=== PATIENT | female | born 1930 | race Caucasian/White ===

== ENCOUNTER 2017-05-27 15:00 | Inpatient (IN) | payer MEDICARE, OTHER ==
[~2017-05-27] VITALS: Ht 157.5 cm; Wt 75.9 kg
--- NOTE | ~2017-05-27 | HP ---
PATIENT'S NAME: COURTNEY CORDERO [facility] AGE: 86 Y [address] ROOM: [place] [address] [facility] ADMIT DATE: 05/27/2017 History & Physical DISCHARGE DATE: FAMILY PHYSICIAN: PHYSICIAN, UNKNOWN ATTENDING PHYSICIAN: Amanda MILLER DATE OF SERVICE: CHIEF COMPLAINT: ETHEL. HISTORY OF PRESENT ILLNESS: The patient is an 86-year-old female with past medical history of type 2 diabetes mellitus, hypothyroidism, hypertension, obesity, and history of MRSA infection who presents here from [facility] with ETHEL. According to Dr. Johns, the transferring doctor, the patient initially presented to their facility with back pain from senior care. On initial evaluation, the patient had a CTA of the abdomen to rule out dissection. CTA did not show any dissection. The patient's chest x-ray showed possible right lower lobe pneumonia. The patient was started on Levaquin initially and was admitted to the hospital. The patient's back pain improved with supportive care. During her stay, the patient's blood culture grew 2/2 MSSA. Vancomycin was added to the patient's list of medication. However, during her stay, the patient's creatinine increased initially when she was admitted on 05/24/2017. The patient's creatinine was noted to be around 1.2. However, the patient was noted to be oliguric and also in acute kidney injury with creatinine now to 3.2. The patient was treated with trial of fluids and Lasix. When the patient was transferred to our facility, the patient was on Lasix drip. The patient currently complains of lower back pain. She reports that has been going on for a month. She denies any worsening of shortness of breath, productive cough, fever, chills, nausea, vomiting, abdominal pain, diarrhea, and chest pain. Of note, the patient lives in senior care. MEDICAL HISTORY: Hypertension, diabetes mellitus, hypothyroidism, hypertension, obesity, history of MRSA infection. SURGICAL HISTORY: Pacemaker placement, hysterectomy, and cataract surgery. FAMILY HISTORY: The patient's mom has a history of stroke. PATIENT'S NAME: COURTNEY CORDERO [facility] AGE: 86 Y [address] ROOM: [place] [address] LOCATION: [facility] ADMIT DATE: 05/27/2017 History & Physical DISCHARGE DATE: FAMILY PHYSICIAN: PHYSICIAN, UNKNOWN ATTENDING PHYSICIAN: Amanda MILLER SOCIAL HISTORY: The patient quit smoking 15 years ago and denies use of alcohol and lives in the senior care. ALLERGIES: SULFA AND PENICILLIN. MEDICATIONS: The patient takes at home, 1. Morven 5/325 four times a day. 2. Aldactone 25 mg twice a day. 3. Vitamin D 2000 units daily. 4. Metolazone 5 mg 3 times a week. 5. Calcium with vitamin D twice a day. 6. Lasix 40 mg. 7. Allopurinol 300 mg. 8. Metformin 500 mg twice a day. 9. Omeprazole. 10. Zoloft 100 mg. 11. Restoril 50 mg. 12. Ativan 0.5 four times a day as needed. 13. Synthroid 0.1 mg. 14. Coreg 6.25 twice a day. 15. Zocor 40 mg. 16. Lisinopril 20 mg. 17. Pepto-Bismol as needed. 18. Aspirin daily. REVIEW OF SYSTEMS: All systems have been reviewed and are negative except for what I mentioned in the HPI. PHYSICAL EXAMINATION: VITAL SIGNS: Temperature 98, blood pressure 114/76, respiratory rate 20, pulse of 70. GENERAL APPEARANCE: The patient is alert and awake, in no acute distress. NOSE: No nasal discharge. EYES: Extraocular muscles intact. MOUTH: Dry oral mucosa. EAR: No ear discharge. CHEST: Decreased breath sounds bilaterally. No wheezing or rales heard. HEART: Distant heart sounds. Regular rate and rhythm. No murmurs, rubs, or gallops heard. ABDOMEN: Old surgical scar. Abdomen is soft, nontender, and nondistended. PATIENT'S NAME: COURTNEY CORDERO [facility] AGE: 86 Y [address] ROOM: [id number] [place] [address] [facility] ADMIT DATE: 05/27/2017 History & Physical DISCHARGE DATE: FAMILY PHYSICIAN: PHYSICIAN, UNKNOWN ATTENDING PHYSICIAN: Amanda MILLER Bowel sounds are present. EXTREMITIES: Lower extremity venous stasis change and trace edema. MUSCULOSKELETAL: Range of motion intact. No obvious joint effusion noted. FINE ARTS MODEL: Alert and oriented x3. Motor and sensory grossly intact. LABORATORY DATA: Lactate 1. White blood cells 8.3, hemoglobin 10, platelets of 187. Chem: BUN of 43, CO2 of 20, creatinine of 3.2, albumin of 2, and calcium of 5.6. Potassium 4.8 and magnesium 2.2. Chest x-ray shows cardiac enlargement, bibasilar opacity, which could reflect edema or infiltrate and atelectasis. ASSESSMENT AND PLAN: 1. Acute kidney injury, etiology most likely secondary to contrast-induced nephropathy or secondary sepsis due to bacteremia. At the present time, it is somewhat difficult to evaluate the patient's intravascular fluid. The patient has some edema, also looks dry. The patient has been on trial of IV fluids and Lasix. Actually, the patient came with a Lasix drip. We will hold any IV fluid or Lasix. We will acquire urine electrolytes. We will acquire renal ultrasound. We will have strict I's and O's. Discussed the case with Dr. Recio. No indication for hemodialysis at this moment. This is most likely secondary to contrast- induced nephropathy, as the patient has a history of diabetes mellitus, and was on aggressive diuretic regimen as an outpatient when she got her contrast. We will follow the patient clinically. 2. Bacteremia. The patient has methicillin-susceptible. 3. Staphylococcus aureus 2/2 at the outside hospital. Discussed the case with ID. We will start the patient on oxacillin 2 g IV every 4 hours. We will repeat blood culture. We will acquire echo initially with a transthoracic echo to rule out infectious endocarditis. Also, the patient has pacemaker to be seen by Infectious Disease on Saturday and in order to figure out for how long we should treat this methicillin- susceptible. 4. Staphylococcus aureus. Also, interestingly, the patient has back pain. I suspect the patient might actually present with diskitis, as the patient is presenting with back pain. However, she did not acquire MRI with and without contrast due to acute kidney injury. We will treat the patient with antibiotic for now and when the creatinine gets better, we will evaluate for MRI for diskitis. 5. Community-acquired pneumonia. The patient is currently not convinced if the patient's initial presentation to be pneumonia. Chest x-ray here did not show any significant infiltrate. The patient currently does not have any productive cough and worsening of shortness of breath. We will acquire CT chest without contrast to further evaluate for infiltrate. PATIENT'S NAME: COURTNEY CORDERO [facility] AGE: 86 Y [address] ROOM: [place] [address] [facility] ADMIT DATE: 05/27/2017 History & Physical DISCHARGE DATE: FAMILY PHYSICIAN: PHYSICIAN, UNKNOWN ATTENDING PHYSICIAN: Amanda MILLER 6. Hypocalcemia. The patient was noted to have a calcium level corrected of 7.4. We will give calcium gluconate now. There is no [place] sign noted. We will follow calcium. We will also get a vitamin D level and PTH level. 7. Hypothyroidism, to continue Synthroid. 8. Diabetes mellitus type 2. We will hold metformin. We will put the patient on sliding scale insulin. 9. Hypertension, stable. We will hold diuretic medication. 10. Morbid obesity, ongoing. Greater than 70 minutes was spent on patient care. Greater than 50% of the time was spent in direct care. The patient's case was discussed with Infectious Disease and Dr. Recio. We will admit the patient for ETHEL and MSSA. The patient's question and family question were answered satisfactorily. On admission, code status, full code. MD BRETT RAMOS/kimberly /[id number] D: [id number] T: [id number] HISTORY & PHYSICAL
--- NOTE | ~2017-05-27 | CON ---
PATIENT'S NAME: COURTNEY CODRERO [facility] AGE: 86 Y [address] ROOM: [id number] [place], [place] [address] LOCATION: [facility] ADMIT DATE: 05/27/2017 Consultation DISCHARGE DATE: FAMILY PHYSICIAN: PHYSICIAN, UNKNOWN ATTENDING PHYSICIAN: Amanda MILLER DATE OF CONSULTATION: 05/28/2017 REFERRING PHYSICIAN: Chasidy Malik MD This is a [facility] Nephrology consultation. REASON FOR CONSULTATION: Acute kidney injury on chronic kidney disease stage 3. HISTORY OF PRESENT ILLNESS: This is an 86-year-old female patient with past medical history of type 2 diabetes, hypothyroidism, hypertension, obesity, and history of MRSA infection who presented to [facility] from [facility] with acute kidney injury. While in [place], the patient initially presented with back pain. The patient did undergo a CT with contrast to rule out dissection. The patient was started on Levaquin initially and the patient's blood pressure at that time grew out MSSA. Vancomycin was also added to the patient's medication list at that time. However, during the patient's stay, her creatinine raised from baseline 1.2 to 3.2 today. The patient is noted to be oliguric as well. The patient was treated with a trial of IV fluid as well as Lasix. At the time of transfer, the patient was on a Lasix drip. I do note that the patient was also taking an JELANI inhibitor on her home medication list prior to her admission. She was also taking metolazone at home. At the time of the exam, the patient is complaining of back pain. She does appear to be hypervolemic. Urine protein-creatinine ratio has returned at 1.0. Echocardiogram does show an ejection fraction of 35% with elevated pulmonary pressures of 61 mmHg. Chest x-ray did show cardiac enlargement with bibasilar opacity that could reflect edema or infiltrate as well as atelectasis. Bilateral pleural fluid collections were also noted that were greater in the left than the right. Due to the patient's acute kidney injury with a baseline creatinine of 1.2 and elevation of creatinine today to 3.2, Dr. Recio has been asked to consult on the patient. PAST MEDICAL HISTORY: As listed above includin. Hypertension. 2. Diabetes mellitus, controlled. PATIENT'S NAME: COURTNEY CORDERO [facility] AGE: 86 Y [address] ROOM: [place] [address] LOCATION: [facility]PCU ADMIT DATE: 05/27/2017 Consultation DISCHARGE DATE: FAMILY PHYSICIAN: PHYSICIAN, UNKNOWN ATTENDING PHYSICIAN: Amanda MILLER 3. Hypothyroidism. 4. Obesity. 5. History of MRSA infection. 6. History of MSSA infection, unknown source. 7. Acute kidney injury on chronic kidney disease stage 3. 8. Gout. 9. GERD. 10. Hyperlipidemia. PAST SURGICAL HISTORY: 1. Pacemaker placement. 2. Hysterectomy. 3. Cataract surgery. FAMILY HISTORY: Reviewed and is noncontributory. There is no history of kidney disease or dialysis. SOCIAL HISTORY: The patient does have a remote history of smoking. She did quit 15 years ago. Denies any use of alcohol or illicit drug use. She does live in a long term. ALLERGIES: SULFA AND PENICILLIN. CURRENT HOME MEDICATIONS: Include: 1. Wellington 5/325 one to two tablets p.o. q.6 hours p.r.n. moderate pain. 2. Acidophilus 1 tablet p.o. daily. 3. Albuterol 1 puff inhalation q.4 hours p.r.n. shortness of breath and 4 times a day. 4. Aspirin 81 mg daily. 5. Calcitriol 0.5 mcg daily. 6. Calcium carbonate 600 mg twice a day. 7. Carvedilol 6.25 mg twice a day. 8. Vitamin D3 2000 units daily. 9. Questran pack 4 g p.o. b.i.d. 10. Questran cream one application topically q.2 hours p.r.n. skin irritation. 11. Uloric 40 mg daily. 12. Lasix 40 mg daily. 13. Glucagon pen 1 mg subcu as directed for p.r.n. hypoglycemia and glucose 15 g p.o. as directed p.r.n. hypoglycemia. 14. Levothyroxine 100 mcg daily. PATIENT'S NAME: COURTNEY CORDERO [facility] AGE: 86 Y [address] ROOM: [place] [address] LOCATION: [facility]U ADMIT DATE: 05/27/2017 Consultation DISCHARGE DATE: FAMILY PHYSICIAN: PHYSICIAN, UNKNOWN ATTENDING PHYSICIAN: Amanda MILLER 15. Lisinopril 10 mg daily, currently being held. 16. Loperamide 2 mg p.o. p.r.n. loose stools. 17. Ativan 0.5 mg 4 times a day p.r.n. anxiety. 18. Zaroxolyn 5 mg p.o. 3 times a week. 19. Zoloft 100 mg p.o. daily. 20. Restoril 15 mg p.o. h.s. 21. Timoptic 1 drop ophthalmic twice a day. 22. Aldactone 25 mg p.o. b.i.d. 23. Potassium chloride 10 mEq p.o. daily. 24. Zyloprim 300 mg p.o. daily. 25. Zocor 40 mg p.o. daily. 26. Metformin 500 mg p.o. twice a day, currently being held. 27. Omeprazole 40 mg p.o. daily. 28. Pepto-Bismol 30 mL p.o. p.r.n. indigestion for nausea. REVIEW OF SYSTEMS: GENERAL: Denies any fevers or chills. EYES: No double vision or blurred vision. NOSE: No epistaxis or rhinorrhea. MOUTH: No gingival bleeding. THROAT: No sore throat, hoarseness, or cough. RESPIRATORY: Denies wheezing or hemoptysis. CARDIOVASCULAR: Denies any chest pain or palpitations. GASTROINTESTINAL: Denies any nausea, vomiting, abdominal pain, or diarrhea. GENITOURINARY: Denies any frequency, urgency, or hesitancy. MUSCULOSKELETAL: Positive for back pain. Denies any new arthralgias or myalgias. NEUROLOGICAL: Denies numbness and tingling in the upper and lower extremities. HEMATOLOGICAL: Denies any bruising or bleeding. IMMUNOLOGICAL: Denies a history of recent infection. There is some concern of right lower lobe pneumonia on chest x-ray that was obtained prior to arrival. PSYCHIATRIC: Denies depression or anxiety. LABORATORY DATA: ProBNP is 13,242. WBC is 8.3, hemoglobin 10.0, hematocrit 30.1, and platelets are 187. Glucose 95, BUN 42, creatinine 2.8. Sodium is 139, potassium 4.5, chloride 102, CO2 is 23, calcium is 6.2, albumin is 2.2. AST is 27, ALT is 15. Alkaline phosphatase is 82, phosphorus is 4.4, magnesium is 2.8. Sedimentation rate is 70, hemoglobin A1c is 6.5. Urinary protein creatinine ratio was 1.0. Urinary creatinine is 27, urinary sodium is 108, and urinary protein is 26.1. PTH is 257.6. PHYSICAL EXAMINATION: VITAL SIGNS: Blood pressure is 136/71, weight is 78.6 kg, pulse is 60, PATIENT'S NAME: COURTNEY CORDERO [facility] AGE: 86 Y [address] ROOM: [address] [address] [facility] AD[facility] DATE: 05/27/2017 Consultation DISCHARGE DATE: FAMILY PHYSICIAN: PHYSICIAN, UNKNOWN ATTENDING PHYSICIAN: Amanda MILLER respirations 16, and temperature is 96.5. GENERAL: On exam, this is an elderly female patient who is alert and awake and is in no acute distress. HEENT: Her head is normocephalic and atraumatic. Eyes: Pupils are equal, round, and reactive to light and accommodation. Nose is midline. No nasal drainage noted. Mouth: Mucous membranes are pink and moist. Dentition is in poor repair. Ears: No ear discharge noted. LUNG: Lung sounds are diminished in the bases with crackles noted bilaterally greater in the left than the right. CARDIOVASCULAR: Regular rate and rhythm. Unable to appreciate any murmurs, rubs, or thrills. ABDOMEN: Soft and bowel sounds are positive, obese. EXTREMITIES: Show no signs of peripheral edema, clubbing, or cyanosis. There are lower extremity venous stasis changes bilaterally. GENITOURINARY: A Rosen catheter is present, draining clear yellow urine. NEUROLOGIC: Cranial nerves 2 through 12 are grossly intact. The patient is alert and oriented x3. ASSESSMENT AND PLAN: 1. Acute kidney injury, on chronic kidney disease stage 3. This is likely secondary to contrast-induced nephropathy as well as vancomycin with possible methicillin-susceptible Staphylococcus aureus sepsis with hypotension. The patient was also taking lisinopril prior to her arrival. At the time of exam, the patient does appear to be hypervolemic. Dr. Recio does recommend the patient receive Bumex 3 mg IV x1. We will place her on strict intake and output as well as daily weights and monitor this closely. We will also check her renal ultrasound to rule out any obstruction that could be contributing to her acute kidney injury. We will continue to hold her JELANI inhibitor at this time. 2. Methicillin-susceptible Staphylococcus aureus sepsis. The patient is on cefazolin at this time. Further recommendations per primary team. ID has been consulted. 3. Hypocalcemia. The patient is asymptomatic. The patient did receive IV calcium gluconate. We will continue to monitor this at that time. I do note the patient is taking calcitriol as well as vitamin D supplementation with calcium carbonate as an outpatient. We will review the records for further recommendations. 4. Hypertension. The patient's blood pressures are stable at this time. We will continue current medications. 5. Diabetes mellitus type 2. The patient's hemoglobin A1c is 6.5. Metformin is currently being held. The patient is on sliding scale insulin. This patient has been seen and assessed by Dr. Recio. Her care is being conducted in consultation with Dr. Recio as well as me. We will plan further PATIENT'S NAME: COURTNEY CORDERO [facility] AGE: 86 Y [address] ROOM: [place] [address] LOCATION: GPCU ADMIT DATE: 05/27/2017 Consultation DISCHARGE DATE: FAMILY PHYSICIAN: PHYSICIAN, UNKNOWN ATTENDING PHYSICIAN: Amanda MILLER recommendations as they are forthcoming. TOMEKA NAVARRETE DNP, PATIENT COMPANION FOR MD EJT NUGENT/modl /[id number] d: 05/29/17 0013 t: 06/02/17 1042, CONSULTATION REPORT
--- NOTE | ~2017-05-27 | DS ---
PATIENT'S NAME: COURTNEY CORDERO [facility] AGE: 86 Y [address] ROOM: [place] [address] LOCATION: GPCU ADMIT DATE: 05/27/2017 Discharge Summary DISCHARGE DATE: 05/30/2017 FAMILY PHYSICIAN: Dannie Johns MD ATTENDING PHYSICIAN: Amanda Wisdom PRIMARY DIAGNOSES: 1. Infective endocarditis. 2. MSSA septicemia. 3. T12 vertebral compression fracture with suspected diskitis. 4. Acute kidney injury. 5. Chronic kidney disease, stage 3. 6. Zhies-vw-glieofe systolic congestive heart failure. 7. Acute hypoxic respiratory failure. 8. Nonobstructive coronary artery disease. 9. Diabetes mellitus type 2. 10. Essential hypertension. 11. Hypocalcemia. 12. Chronic constipation. 13. History of MRSA infection, unknown source. 14. Hypothyroidism. 15. Gout. 16. History of permanent pacemaker implantation, indication unknown. OPERATIONS/PROCEDURES: Transesophageal echocardiography was obtained 05/30/2017 demonstrating evidence of infective endocarditis with ventricular lead vegetations. Ejection fraction was noted to be at 35%. Diastolic dysfunction also noted. Elevated RVSP at [address] scan of the lumbosacral spine performed 05/30/2017 showed T12 vertebral compression fracture with a 33% vertebral body height loss and some associated edema in the prevertebral soft tissues. Bone scan obtained 05/29/2017 demonstrated nonspecific uptake in the thoracolumbar spine. Renal ultrasound obtained 05/28/2017 showed cortical thinning consistent with the patient's age. No evidence for renal collecting system obstruction. HISTORY OF PRESENTING ILLNESS/REASON FOR ADMISSION: Please refer to the H and P dictated 05/27/[address] Wisdom. HOSPITAL COURSE: The patient was admitted to hospital as noted above with a presumptive diagnosis of MSSA septicemia. She had been treated at an outlying facility with broad-spectrum antibiotic therapy including Zosyn, vancomycin, and Levaquin. She was anuric and there was concern for renal failure and the need for urgent hemodialysis. Her antibiotic regimen was streamlined to cefazolin 2 g IV q.8 h. Her PATIENT'S NAME: COURTNEY CORDERO [facility] AGE: 86 Y [address] ROOM: [place] [id number] LOCATION: GPCU ADMIT DATE: 05/27/2017 Discharge Summary DISCHARGE DATE: 05/30/2017 FAMILY PHYSICIAN: Dannie Johns MD ATTENDING PHYSICIAN: Amanda Wisdom medication regimen was also streamlined to exclude JELNAI inhibitor therapy and the vancomycin was stopped. It was noted that she had recently had IV contrast related to CT angiography performed elsewhere. Her clinical condition was relatively stable. Blood cultures were repeated here and remained negative over the course of her hospital stay. Her renal function gradually improved. She was seen and evaluated by Nephrology and received IV Bumex. She made good diuretic response to that and her creatinine improved. At the point of admission, her creatinine was 3.2, and by the date of transfer, she was 1.2. She had a negative fluid balance of nearly 5 L. She did require oxygen supplementation, but this also improved. Oxygen requirements were 7 L at the point of admission, but she improved to 1 L by the point of discharge. Infectious Disease was consulted. Because of the MSSA bacteremia, transesophageal echocardiography was obtained. There was clinical suspicion for diskitis based on the temporal relationship of her symptoms. Bone scan imaging did show nonspecific activity in the thoracolumbar spine. CT scan did demonstrate an acute fracture, but no lytic lesions. She did have some hazy prevertebral edema consistent with infection versus inflammation. Because of evidence of infective endocarditis and vegetations on the ventricular lead, recommendation for pacemaker and pacemaker lead removal was made. This was recommended by Dr. King as well as Dr. Malik, nurse practical. I did discuss the case with Dr. Desouza, Cardiothoracic Surgery; however, he felt that based on the age of the pacemaker and leads, specialty care would be required, not available at this facility. He recommended referral to [place] or [place]. I did contact Dr. Fonseca at [facility] in [place] who agreed to accept the patient in transfer. I did discuss this at length with the patient and her family and they expressed understanding and agreement. DISCHARGE INSTRUCTIONS: 1. Diet: ADA 1800 calorie per day as tolerated. 2. Activity: She will remain on bedrest for the period of transfer. MEDICATIONS: 1. Cefazolin 2 g IV q.8 h. 2. Colace 100 mg p.o. b.i.d. 3. Dulcolax 10 mg UT daily p.r.n. 4. Milk of magnesia 30 mL p.o. daily p.r.n. 5. Albuterol per nebulizer q.4 h. p.r.n. 6. Bumex 1 mg p.o. daily. 7. Calcium with vitamin D a 1000 mg p.o. b.i.d. PATIENT'S NAME: COURTNEY CORDERO [facility] AGE: 86 Y [address] ROOM: [place] [address] LOCATION: GPCU ADMIT DATE: 05/27/2017 Discharge Summary DISCHARGE DATE: 05/30/2017 FAMILY PHYSICIAN: Dannie Johns MD ATTENDING PHYSICIAN: Amanda Wisdom 8. Mylanta 10 to 15 mL p.o. daily p.r.n. 9. Sertraline 100 mg p.o. daily. 10. Levothyroxine 100 mcg p.o. q.a.m. 11. Insulin NovoLog per mild sliding scale. 12. Heparin 5000 units subcu b.i.d. 13. Protonix 40 mg p.o. q.p.m. 14. Glucagon 1 mg subcu p.r.n. hypoglycemia. 15. Glucose tab 16 g p.o. daily p.r.n. hypoglycemia. 16. Zofran 4 mg IV q.8 h. p.r.n. nausea. 17. [place] 5/325 one tab p.o. q.6 h. p.r.n. pain. 18. Lorazepam 0.5 mg p.o. q.12 h. p.r.n. anxiety. FOLLOW UP: She will have followup at [facility] by the Hospitalist Service and ultimately Cardiology consultation. CONDITION ON DISCHARGE: Fair. Total time spent on discharge process was 60 minutes. MD STACI HOLLOWAY/kimberly /[id number] d: 05/31/17 0357 t: 06/01/17 0833, DISCHARGE SUMMARY
--- NOTE | ~2017-05-27 | CON ---
PATIENT'S NAME: COURTNEY ADAMS [facility] AGE: 86 Y [address] ROOM: [place] [address] LOCATION: GPCU ADMIT DATE: 05/27/2017 Consultation DISCHARGE DATE: FAMILY PHYSICIAN: Dannie Johns MD ATTENDING PHYSICIAN: Amanda MILLER DATE OF CONSULTATION: 05/29/2017 REFERRING PHYSICIAN: Chasidy Malik MD INFECTIOUS DISEASE CONSULTATION REASON FOR EVALUATION: MSSA septicemia. CHIEF COMPLAINT: The patient states that her back hurts. HISTORY OF PRESENT ILLNESS: Ms. Adams is a very pleasant 86-year-old woman. She has had worsening back pain for a month. She is unaware of any antecedent trauma. Because of this, she presented to outside facility as it was worsening. CT angio of the abdomen did not show any dissection by report. A chest x-ray showed possible pneumonia. She was therefore started on levofloxacin. Blood cultures grew MSSA and so vancomycin was added. She was transferred here when she developed acute renal failure. Kidneys are improving. She is currently on cefazolin and tolerating it. Back pain is a little bit better. I am asked to evaluate. She does not have much in the way of respiratory symptoms. She is on oxygen at this time and she states she is not chronically. She does have a little bit of shortness of breath. PAST MEDICAL HISTORY: Significant for: 1. High blood pressure. 2. Diabetes. 3. Thyroid issues. 4. Indwelling pacemaker. FAMILY HISTORY: Positive for stroke. SOCIAL HISTORY: Positive for tobacco use but she quit a couple decades ago. Lives in a facility. No alcohol abuse stated. ALLERGIES: PATIENT'S NAME: COURTNEY ADAMS [facility] AGE: 86 Y [address] ROOM: [facility] [place] [id number] LOCATION: GPCU ADMIT DATE: 05/27/2017 Consultation DISCHARGE DATE: FAMILY PHYSICIAN: Dannie Johns MD ATTENDING PHYSICIAN: Amanda MILLER INCLUDE: SULFA AND PENICILLIN. IT APPEARS THAT SULFA GIVES HIVES. PENICILLIN SEEMS LIKE IT GAVE HER A LUMP IN HER BUTTOCK WHEN SHE RECEIVED AN INJECTION THERE AND NO LUMPS ELSEWHERE, I DOUBT SHE IS TRULY ALLERGIC TO PENICILLIN. REVIEW OF SYSTEMS: Pertinent positives include: RESPIRATORY: The patient with shortness of breath. MUSCULOSKELETAL: The patient with back pain. The patient denies other symptoms. Remainder of a complete review of systems is otherwise negative. PHYSICAL EXAMINATION: VITAL SIGNS: Temperature 96.6, heart rate 68, and blood pressure 162/73. GENERAL: The patient is sitting up in chair, in no acute distress. Appears nontoxic. HEENT: The patient is anicteric. No conjunctival lesions noted. Ears, nose, and throat; tongue has no thrush. CARDIOVASCULAR: Heart is regular with a systolic murmur. RESPIRATORY: Breathing is easy, unlabored. Lungs are clear bilaterally. GASTROINTESTINAL: Abdomen is soft, nontender. Normoactive bowel sounds are present. LYMPHATICS: No cervical lymphadenopathy. MUSCULOSKELETAL: The patient with good strength in both feet, plantar and dorsiflexion. No effusions of fingers, wrists, elbows, shoulders, or knees. She does have some arthritic changes of hands. INTEGUMENTARY: No obvious rash. Peripheral IV site looks okay. She does have some splinter hemorrhages on fingernails of the left hand. LABORATORY DATA: Laboratory studies are reviewed. Outside hospital blood cultures from the have MSSA that is resistant to tetracycline and clindamycin. Blood cultures here on the are no growth to date. ASSESSMENT AND RECOMMENDATIONS: 1. Methicillin-susceptible Staphylococcus aureus septicemia. 2. Probable back infection. 3. Concern for endocarditis. PLAN: She needs a LARRY. She has an indwelling pacemaker. We need to see if her pacemaker leads have been colonized. If so the pacemaker needs to be removed. The fact that she cleared her blood cultures makes this somewhat less likely. However, it needs to be excluded as it would markedly supervisor records change. Even if the bone scan is negative, I would suspect that she does have a back infection given her history. She is looking at 6 to 8 weeks of parenteral PATIENT'S NAME: COURTNEY ADAMS [facility] AGE: 86 Y [address] ROOM: [id number] [place] [id number] [facility] ADMIT DATE: 05/27/2017 Consultation DISCHARGE DATE: FAMILY PHYSICIAN: Dannie Johns MD ATTENDING PHYSICIAN: Amanda MILLER antibiotics possibly followed by oral. The cefazolin is fine. While she is on the parenteral antibiotics, she should have weekly CBC with differential, CMP, looking for toxicity as well as ESR and CRP to help monitor infection. Thank you allowing me to participate in the care of Ms. Adams. We will be happy to discuss the case at any time. MD MELISSA HOPKINS/kimberly /[id number] d: t: 05/29/17 1949, CONSULTATION REPORT
--- NOTE | ~2017-05-27 | ECHO ---
Transthoracic Echocardiography Report (TTE) Demographics Patient Name COURTNEY CORDERO Date of Study 05/28/2017 L Patient Number [id number] Visit Number [id number] Date of 1930 Room Number G6320 Gender Female Number Age 86 year(s) Referring Artis Patel Patient Scheduling Coordinator Jens Nguyen RDCS, Physician RVT Physician Interpreting [place] Wild Semiconductor Assembler Physician A MD Supervising Ordering Artis Patel MD/MLP Physician Nurse Stress Plant Protection Superintendent Conclusions Contractility Score Summary At rest the following contractility abnormalities were noted: Hypokinesis of the Mid russell-lateral, the Mid anterior, the Mid russell-septal, the Mid infero-septal, the Mid inferior, the Mid infero-lateral, the Basal infero-lateral, the Apical inferior, the Apical septal, the Basal russell-septal, the Basal infero-septal, the Apical lateral, the Apical anterior, the Basal anterior, the Basal russell-lateral and the Apical cap segments; Akinesis of the Basal inferior segment. Summary The estimated left ventricular ejection fraction is 35%. Mild concentric left ventricular hypertrophy. Diastolic assessment reveals Grade I diastolic dysfunction. The interventricular septum is flattened which is consistent with right ventricular pressure / and or volume overload. The left atrium is moderately dilated by LA volume index measurement. The right atrium is moderately dilated. Mild prolapse of the anterior mitral valve leaflet(s). Moderate tricuspid regurgitation by color Doppler. There is severe pulmonary hypertension. The pulmonary pressure (RVSP) is 61.58 mmHg. Small circumferential pericardial effusion. Procedure Type of Study TTE procedure:2D Echocardiogram. Procedure Date Date: 05/28/2017 Start: 07:40 AM Study Location: Inpatient Portable Technical Quality: Adequate visualization Indications:Endocarditis. Appropriate Use Criteria: 9 Patient Status: Routine BP: 136/71 mmHg M-Mode/2D Measurements LV Diastolic Dimension: 4.18 cm LV Systolic Dimension: 3.2 cm LV Septum Diastolic: 1.17 cm LV PW Diastolic: 1.02 cm LA Dimension: 3.3 cm RV Diastolic Dimension: 3.77 cm LA volume: 63 ml LVOT: 1.8 cm RV Base: 3.07 cm LVOT VTI: 19.2 cm RV Mid: 2.91 cm LV Stroke volume: 48.83 ml TAPSE: 1.08 cm TDI-S': 11.2 cm/s Doppler Measurements AV Peak Velocity: 1.47 m/s MV Peak E-Wave: 0.77 m/s AV Peak Gradient: 8.64 mmHg MV Peak A-Wave: 1.06 m/s AV Mean Gradient: 4 mmHg MV E/A Ratio: 0.72 LVOT Peak Velocity: 0.74 m/s AV P1/2t: 415 msec MV Deceleration Time: 123 msec TR Velocity:3.66 m/s PV Peak Velocity: 0.8 m/s TR Gradient:53.58 mmHg PV Peak Gradient: 2.56 mmHg Estimated RAP:8 mmHg Estimated PASP: 61.58 mmHg Estimated RVSP: 62 mmHg A' Septal Velocity: 0.04 m/s E' Septal Velocity: 0.06 m/s A' Lateral Velocity: 0.08 m/s E' Lateral Velocity: 0.08 m/s Findings Left Ventricle Mild concentric left ventricular hypertrophy. Diastolic assessment reveals Grade I diastolic dysfunction. The interventricular septum is flattened which is consistent with right ventricular pressure / and or volume overload. Right Ventricle Mildly reduced right ventricular function. Device lead noted in the right ventricle with possible masses attached Left Atrium The left atrium is moderately dilated by LA volume index measurement. Right Atrium The right atrium is moderately dilated. Mitral Valve Trivial mitral regurgitation by color Doppler. Mild prolapse of the anterior mitral valve leaflet(s). Aortic Valve There is mild aortic regurgitation by color Doppler. The aortic valve is mildly sclerotic. Tricuspid Valve Moderate tricuspid regurgitation by color Doppler. There is severe pulmonary hypertension. The pulmonary pressure (RVSP) is 61.58 mmHg. Pulmonic Valve Trivial pulmonic valve regurgitation by color Doppler. Pericardial Effusion Small circumferential pericardial effusion. Miscellaneous Visualized portions of the aortic root and ascending aorta appear normal in size. Pleural Effusion No evidence of pleural effusion. Contractility Score LV regional wall motion:(0-Non visualized 1-Normal 2-Hypokinesis 3-Akinesis 4-Dyskinesis 5-Aneurysm) Signature dtt: Chasidy Malik dtd: 05/28/17 0740 Physician Self Edit
--- NOTE | ~2017-05-27 | ECHO ---
Transesophageal Echocardiography Report (LARRY) Demographics Patient Name COURTNEY CORDERO Date of Study 05/30/2017 L Patient Number [id number] Visit Number [id number] Date of 1930 Room Number G6320 Gender Female Number Age 86 year(s) Referring Nat Jones Supervisor Fabrication Yvrose Montoya RVMarques, Physician RDCS Physician Interpreting Helena Wild Bending Shed Worker Physician Edna ESPINOSA Supervising Ordering Duran Kaplan MD, MD/P Physician Nurse Stress Machine Stoppage Frequency Checker Conclusions Summary No valvular vegetations are seen. Estimated EF: 25-30 %. The right atrium is mildly dilated. Small mobile mass attached on the ventricular lead(#30,31,32) No evidence of patent foramen ovale by Doppler. Mild mitral regurgitation. Procedure Type of Study LARRY procedure Procedure Date Date: 05/30/2017 Start: 08:25 AM Study Location: Inpatient Portable Technical Quality: Adequate visualization Indications:Endocarditis. Appropriate Use Criteria: 8 Patient Status: Routine Rhythm: NSR HR: 81 bpm BP: 166/71 mmHg LARRY Performed By: the attending and the advertising teacher Findings Left Ventricle Estimated EF: 25-30 %. Right Ventricle Normal right ventricular size and function. Left Atrium No left atrial masses including the appendage. Right Atrium The right atrium is mildly dilated. Small mobile mass attached on the ventricular lead(#30,31,32) No evidence of patent foramen ovale by Doppler. Mitral Valve Mild mitral regurgitation. Aortic Valve Normal trileaflet aortic valve. There is mild aortic regurgitation. Tricuspid Valve Mild-moderate tricuspid regurgitation . Pulmonic Valve The pulmonic valve is not well visualized. Pericardial Effusion No pericardial effusion. Miscellaneous No significant thoracic aorta atherosclerosis. Signature dtt: Chasidy Malik dtd: 05/30/17 0825 Physician Self Edit
[2017-05-27 16:08] LABS: BASOPHIL % 0.2 %; EOSINOPHIL # 0.2 K/uL (0.0-0.5); EOSINOPHIL % 2.7 %; HEMATOCRIT 30.1 % (30.0-46.0); IMMATURE GRANULOCYTE # 0.1 K/uL (0.0-0.3); IMMATURE GRANULOCYTE % 0.6 %; LYMPHOCYTE # 0.9 K/uL (0.8-4.0); LYMPHOCYTE % 10.7 %; MCH 30.3 pg (27.0-34.0); MCHC 33.2 gm/dL (32.0-36.5); MCV 91.2 fl (83.0-98.0); MONOCYTE # 0.9 K/uL (0.0-1.0); MPV 11.1 fl (9.4-12.4); NEUTROPHIL # (ANC) 6.2 K/uL (1.8-7.8); NEUTROPHIL % 74.8 %; NRBC % 0 /100WBC (0-0.00); PLATELET COUNT 187 K/uL (150-450); RDW-CV 16.3 % (11.9-14.6); WBC 8.3 K/uL (4.0-11.0)
[2017-05-27 16:28] LABS: ANION GAP 15.8 (10.0-19.0); CREATININE 3.2 mg/dL (0.5-1.1); POTASSIUM 4.8 mMol/L (3.7-5.1); TOTAL BILIRUBIN 0.3 mg/dL (0.0-1.5); TOTAL PROTEIN 5.1 g/dL (6.0-8.4)
[2017-05-27 16:41] LABS: CALCIUM 5.6 mg/dL (8.5-10.5)
[2017-05-27] MEDS ORDERED: NORCO 5-325 TA1 EACH PO (16:58)
[2017-05-27] MEDS ORDERED: ACIDOPHILUS1 EAC2 PO (16:59)
[2017-05-27] MEDS ORDERED: PROVENTIL2.5 MG/0.5 INH ×2 (17:00→17:02)
[2017-05-27] MEDS ORDERED: ASPIRIN EC81 MG PO (17:03)
[2017-05-27] MEDS ORDERED: ROCALTROL0.5 MCG PO (17:03)
[2017-05-27] MEDS ORDERED: COREG6.25 MG PO (17:04)
[2017-05-27] MEDS ORDERED: CALCIUM600 MG PO (17:04)
[2017-05-27] MEDS ORDERED: VITAMIN D-32000 UNI1 PO (17:05)
[2017-05-27] MEDS ORDERED: QUESTRAN PACKET4 GM PO (17:05)
[2017-05-27] MEDS ORDERED: LASIX40 MG PO (17:08)
[2017-05-27] MEDS ORDERED: QUESTRAN TOP (17:08)
[2017-05-27] MEDS ORDERED: ULORIC40 MG PO (17:08)
[2017-05-27] MEDS ORDERED: GLUTOSE 1537.5 GM PO (17:11)
[2017-05-27] MEDS ORDERED: GLUCAGON 1 MG PE1 MG SUB-Q (17:11)
[2017-05-27] MEDS ORDERED: LEVOTHROID (S100 MCG PO (17:12)
[2017-05-27] MEDS ORDERED: PRINIVIL OR ZES10 MG PO (17:13)
[2017-05-27] MEDS ORDERED: IMODIUM A-D2 MG PO (17:13)
[2017-05-27] MEDS ORDERED: ATIVAN 0.5MG0.5 MG PO (17:14)
[2017-05-27] MEDS ORDERED: ZAROXOLYN5 MG PO (17:15)
[2017-05-27] MEDS ORDERED: ZOLOFT100 MG PO (17:15)
[2017-05-27] MEDS ORDERED: RESTORIL15 MG PO (17:21)
[2017-05-27] MEDS ORDERED: TIMOPTIC5 M1 OPHTH (17:22)
[2017-05-27] MEDS ORDERED: ALDACTONE25 MG PO (17:29)
--- NOTE | 2017-05-27 17:40 | NUR ---
86 Y/O FEMALE ADMITTED FOR ACUTE KIDNEY INJURY & BACTUREMIA. PT HAS BEEN IN THE [facility] SINCE LAST Saturday05/24/17 & TRANSFERED TO [facility] TODAY. PT IS ALERT & ORIENTED BUT CAN GET CONFUSED AT TIMES. ALLERGIES - PENICILLIN & SULFA = HIVES PT IS CURRENTLY UNABLE TO STAND ON OWN AT BEDSIDE & FAMILY STATES SHE HAS BECOME WEAKER & LOST 10-15 LBS OVER THE PAST MONTH. PT HAS HAD DIARRHEA FOR PAST MONTH & POOR APPETITE. ALSO C/O BACK/FLANK PAIN FOR THE PAST MONTH, SOME EDEMA NOTED IN BILAT LOWER LEGS WELL SORES ON HER LEGS. PAST 2 DAYS PT HAS HAD DIFFICULTY SWALLOWING HER PILLS. MEDICAL HISTORY - DMII, PACEMAKER, PVD, CAD, HTN, HIGH CHOL, GOUT, ARTHRITIS, MAC DEGENERATION, DEPRESSION, ANXIETY, NEURODERMATITIS, THYROID DISEASE, HX OF MRSA & HX OF SEPSIS APPROX 2 YRS AGO. SURGICAL HISTORY - PACEMAKER PLACED >7 YRS AGO, BATTERIES REPLACED THIS SPRING, VAG HYSTERECTOMY, APPY, BILAT CATARACT REPORT GIVEN TO PT PRIMARY CARE NURSE ASA RN ADM EDUCATION DONE WITH PT SON & DAUGHTER IN LAW WELL PT HERSELF
[2017-05-27] MEDS ORDERED: KCL - MICRO-K10 MEQ PO (17:49)
[2017-05-27] MEDS ORDERED: ZYLOPRIM300 MG PO (17:52)
[2017-05-27] MEDS ORDERED: ZOCOR40 MG PO (17:53)
[2017-05-27] MEDS ORDERED: GLUCOPHAGE500 MG PO (18:11)
[2017-05-27] MEDS ORDERED: OMEPRAZOLE40 MG PO (18:12)
[2017-05-27] MEDS ORDERED: PEPTO BISMOL LIQ1 ML PO (18:23)
--- NOTE | 2017-05-27 19:33 | NUR ---
Significant Event: Alert & disoriented to place/situation, forgetful, repeats comments. VSS, afebrile, on 1L O2. SOB with activity. 2 assist pivot to wheelchair, weak. Edema to BLE. Rosen present on admit. IV to R)hand and R)AC saline locked. Complaint of lower back pain 8/10, worse when sitting up. Admissions nurse, [employer] tech, and MD notified of patient's arrival.
--- NOTE | 2017-05-28 04:44 | NUR ---
Significant Event: The patient is Alert and Oriente x2, forgetful of place. Denies Numbness and Tingling. Moves all extremities spontaneously and to command. Generalized weakness. Generalized abrasions to arms and legs. VSS. On 1L oxygen per NC. Pain to her lower back gave Centuria at 2342. PIV to ther Right AC and right hand saline locked. Rosen draining yellow urine. Accu checks ACHS. Follow up: TTE today, Dr. Recio and JOZEFD to see during hospitalization.
[2017-05-28 09:24] LABS: ALBUMIN 2.2 gm/dL (3.5-5.0); ANION GAP 14.5 (10.0-19.0); CREATININE 2.8 mg/dL (0.5-1.1); PHOSPHORUS 4.4 mg/dL (2.5-4.9); POTASSIUM 4.5 mMol/L (3.7-5.1)
[2017-05-28 09:25] LABS: CALCIUM 6.2 mg/dL (8.5-10.5)
--- NOTE | 2017-05-28 13:55 | NUR ---
Introduced self and care management services to patient son and kita in law at bedside. Pt sleeps through my visit. Lives at [facility]. Asked son if he thinks she will be able to go back to assisted living on discharge or if he thinks she would benefit from going to the skilled side for a skilled stay for therapies to get stronger. Son says she will need to go to the skilled side. Told him I will start that referral so they hold a spot for her. He is okay with that. Called [facility] and talked with [facility], faxed referral information. Will keep her updated as we get closer to time of discharge.
--- NOTE | 2017-05-28 17:40 | NUR ---
Significant Event: PT IS CONFUSED AND FORGETFUL BUT PLEASENTLY SO. COOPERATIVE WITH CARES. 1 ASSIST TO GET UP. FAMILY IN ROOM. TOTAL BODY SCAN IN THE AM, INFECTIOUS DISEASE TO SEE TOMARROW ALSO Follow up: MONITOR
[2017-05-29 03:53] LABS: BASOPHIL % 0.5 %; EOSINOPHIL # 0.3 K/uL (0.0-0.5); EOSINOPHIL % 3.6 %; HEMATOCRIT 31.7 % (30.0-46.0); HEMOGLOBIN 10.6 g/dL (10.0-15.0); IMMATURE GRANULOCYTE # 0.1 K/uL (0.0-0.3); IMMATURE GRANULOCYTE % 0.6 %; LYMPHOCYTE # 1.5 K/uL (0.8-4.0); LYMPHOCYTE % 18.9 %; MCH 30.1 pg (27.0-34.0); MCHC 33.4 gm/dL (32.0-36.5); MCV 90.1 fl (83.0-98.0); MONOCYTE # 1.2 K/uL (0.0-1.0); MONOCYTE % 14.2 %; MPV 11.7 fl (9.4-12.4); NEUTROPHIL % 62.2 %; NRBC % 0 /100WBC (0-0.00); RBC 3.52 M/uL (3.00-5.00); RDW-CV 16.1 % (11.9-14.6); WBC 8.1 K/uL (4.0-11.0)
[2017-05-29 03:57] LABS: PLATELET COUNT 245 K/uL (150-450)
[2017-05-29 04:07] LABS: ALBUMIN 2.2 gm/dL (3.5-5.0); ANION GAP 13.1 (10.0-19.0); PHOSPHORUS 3.4 mg/dL (2.5-4.9); POTASSIUM 4.1 mMol/L (3.7-5.1)
[2017-05-29 04:08] LABS: CALCIUM 6.4 mg/dL (8.5-10.5)
--- NOTE | 2017-05-29 05:35 | NUR ---
Significant Event: Patient alert and oriented x3. Forgetful at times. HR 60s-90s. SBP 113-149. On 1-2L O2 per NC. All other vital signs stable. Complained of back pain throughout shift. [place] 1 tab given x1 with relief. Up with 1-2 assist to bathroom. Rosen catheter patent with 2300ml uop. Patient slept well. Right forearm and left hand PIVs saline locked. HS accucheck 133. No coverage given per sliding scale. Patient calm and cooperative with all cares. Worried about visits today. Follow up: Total body scan this morning. ID to see today.
--- NOTE | 2017-05-29 15:23 | NUR ---
ST attempted to see pt. to evaluate swallow. Pt. asleep with txst entering room and awakened with verbal cues. Pt. educ. x3 on ST and swallow evaluation along with aspiration risks, but pt. refused x3 to participate in evaluation. Pt. reported "I'm not having any trouble" and "I already have food there" pointing at tray on bedside table. Pt. agreed to participate tomorrow in swallow eval. 12/20 "I'm just so tired" now. Txst agreed to see pt. tomorrow when pt more awake and alert.
--- NOTE | 2017-05-29 17:29 | NUR ---
Significant Event: GOOD DAY, TO BONE SCAN AT NOON, IAntonio WILLSON SAW JUST BEFORE THAT. DR MARTE SAYS KIDNEYS ARE STARTING TO WORK AND HE DOESN'T THINK DIALYSIS IS IN HER FUTURE. PT CONTINUES TO C/O INDIGESTION, ONLY GAVE GAVISCON X1 EARLY THIS SHIFT. PT/OT/SP TO EVALUATE. VSS, PLEASENT AND COOPERATIVE WITH CARES. Follow up: MONITOR
--- NOTE | 2017-05-30 05:47 | NUR ---
Significant Event: Patient alert and oriented most of shift. Forgetful at times. Repetative at times. Can make odd/confused statements. SBP 140s-170s. All other vital signs stable. On RA-1L this shift. Up with 1-2 assist, gaitbelt, and walker to bathroom. Complained of nausea this shift. Zofran given with little relief as of yet. Complained of back pain when getting up this morning. Unable to give pain med yet. NPO since midnight. 1375ml uop. Patient calm and cooperative with all cares. Follow up: CT now. LARRY at 0900.
[2017-05-30 06:33] LABS: BASOPHIL % 0.2 %; EOSINOPHIL # 0.2 K/uL (0.0-0.5); EOSINOPHIL % 1.9 %; HEMATOCRIT 35.8 % (30.0-46.0); HEMOGLOBIN 11.8 g/dL (10.0-15.0); IMMATURE GRANULOCYTE # 0.1 K/uL (0.0-0.3); IMMATURE GRANULOCYTE % 0.9 %; LYMPHOCYTE # 1.6 K/uL (0.8-4.0); MCH 29.7 pg (27.0-34.0); MCV 90.2 fl (83.0-98.0); MONOCYTE # 0.9 K/uL (0.0-1.0); MONOCYTE % 11.4 %; MPV 11.4 fl (9.4-12.4); NEUTROPHIL # (ANC) 5.5 K/uL (1.8-7.8); NEUTROPHIL % 66.6 %; NRBC % 0 /100WBC (0-0.00); PLATELET COUNT 282 K/uL (150-450); RBC 3.97 M/uL (3.00-5.00); RDW-CV 15.9 % (11.9-14.6); WBC 8.2 K/uL (4.0-11.0)
[2017-05-30 06:45] LABS: ALBUMIN 2.4 gm/dL (3.5-5.0); ANION GAP 8.8 (10.0-19.0); CREATININE 1.2 mg/dL (0.5-1.1); POTASSIUM 3.8 mMol/L (3.7-5.1)
[2017-05-30 06:48] LABS: CALCIUM 7.2 mg/dL (8.5-10.5)
--- NOTE | 2017-05-30 15:11 | NUR ---
A-NUTRITION F/U (+)BM. C/O NAUSEA AT TIMES. LARRY TODAY. WAIT DOWN FROM ADMIT; WT CHANGE MOST LIKELY RELATED TO FLUID CHANGES. PT IS ON BUMEX. LABS: NA 140, K+ 3.8, GLU 114, BUN 22, WATERPROOF COATING MACHINE TENDER 1.2, ALB 2.4, CRP 7.14 MEDS: OSCAL+D, BUMEX, PRN BOWEL MEDS, COLACE DIET RX: CONSISTENT CARB. PO INTAKE HAS BEEN 0-100%; AVG IS 66%. VISITED W/PT RE: APPETITE, ETC. PT REPORTS THAT HER APPETITE IS FINE. HER FAMILY HAS BEEN HELPING HER ORDER HER MEALS. DISCUSSED SUPPLEMENT OPTIONS TO SUPPLEMENT HER PO INTAKE; PT SAID " I DO NOT WANT ANY OF THOSE." BEDSIDE SWALLOW COMPLETED TODAY. PT WILL HAVE A MBS TOMORROW. EST NUTR NEEDS: [id number] KCALS AND 73-88 GM PROTEIN D-AT NUTRITION RISK W/INADEQUATE ORAL INTAKE AT TIMES R/T ALTERED APPETITE SECONDARY TO ALTERED GI FXN AEB C/O NAUSEA, INTAKE RECORDS, PT REPORT. I-CONTINUE W/CURRENT DIET RX M/E-GOAL: PO INTAKE >/=50% FOR DURATION OF ADMIT 1)F/U PO INTAKE, WT, AND POC IN 4-6 DAYS 2)ASSIST NEEDED
--- NOTE | 2017-05-30 16:46 | NUR ---
Significant Event: A/O X 3. FORGETFUL AT TIMES. REPETIVE AT TIMES. AFEBRILE. HR SR IN 70'S, HAS A PACEMAKER. SBP 170'S. PT. GETS ANXIOUS AT TIMES AND WORRIES. FAMILY AT BEDSIDE. 02 AT 2 LPM NC, SATS 95%. PT. HAS BEEN EXPLAINED TO ABOUT HER SITUATION/STATUS. Follow up: CONT. HIGHER LEVEL OF CARES AT [facility] [place] PHYSICIAN DR. ARRIAGA.
--- NOTE | 2017-05-30 17:00 | NUR ---
Patient transferring to [facility] for higher level of care for pacemaker removal. Dr Garzon contacted Dr. Glaser who accepted pt. Pt nurse ANN-MARIE Roach talked with [facility] and is arranging ambulance transport.
== END 2017-05-30 18:00 | disposition disaster alternative care site (69) | DRG 917 ==
LOC: GPCU 15:25
PROVIDERS: Family Medicine; Internal Medicine Nephrology; ADMIT Internal Medicine
PROC: B246ZZZ Ultrasonography of Right and Left Heart (ICD-10-PCS; principal; 2017-05-28)
PROC: B246ZZ4 Ultrasonography of Right and Left Heart, Transesophageal (ICD-10-PCS; 2017-05-30)
PROC: F00ZJWZ Instrumental Swallowing and Oral Function Assessment using Swallowing Equipment (ICD-10-PCS; 2017-05-30)
DX: T50.8X1A Poisoning by diagnostic agents, accidental (unintentional), initial encounter (principal); A41.01 Sepsis due to Methicillin susceptible Staphylococcus aureus; I33.0 Acute and subacute infective endocarditis; N17.9 Acute kidney failure, unspecified; N18.3 Chronic kidney disease, stage 3 (moderate); E03.9 Hypothyroidism, unspecified; E83.51 Hypocalcemia; M46.40 Discitis, unspecified, site unspecified; E66.01 Morbid (severe) obesity due to excess calories; M48.54XD Collapsed vertebra, not elsewhere classified, thoracic region, subsequent encounter for fracture with routine healing; I25.10 Atherosclerotic heart disease of native coronary artery without angina pectoris; M1A.9XX0 Chronic gout, unspecified, without tophus (tophi); Z68.32 Body mass index [BMI] 32.0-32.9, adult; I12.9 Hypertensive chronic kidney disease with stage 1 through stage 4 chronic kidney disease, or unspecified chronic kidney disease; E11.22 Type 2 diabetes mellitus with diabetic chronic kidney disease; Z95.0 Presence of cardiac pacemaker
CPT/HCPCS: A9503; J0360; J0610; J0690; J1644; J2405; J7030; J7040; J7050